=== PATIENT | male | born 1965 | race Caucasian/White ===

== ENCOUNTER 2018-03-09 07:14 | Emergency (ER) | payer BC ==
[2018-03-09 07:40] VITALS: BP 154/95
--- NOTE | 2018-03-09 07:57 | UC ---
Respiratory Complaint HPI - HPI Summary HPI Summary: 52 yo male with 5 day history of cough non productive no CP chest feels tight F/C no N/V/D some nasal congestion - History of Current Complaint Chief Complaint: UCRespiratory Stated Complaint: FEVER, AND COUGH Time Seen by Provider: 03/09/18 07:53 Hx Obtained From: Patient Onset/Duration: Gradual Onset, Lasting Days Timing: Constant Severity Initially: Moderate Severity Currently: Severe Pain Intensity: 8 Pain Scale Used: 0-10 Numeric Character: Cough: Nonproductive Aggravating Factors: Exertion, Recumbent Position Alleviating Factors: Nothing Associated Signs And Symptoms: Positive: Fever, Chills, Nasal Congestion - Allergies/Home Medications Allergies/Adverse Reactions: Allergies Allergy/AdvReac Type Severity Reaction Status Date / Time No Known Allergies Allergy Verified 03/09/18 07:24 Home Medications: Home Medications Amlodipine Besylate [Norvasc 10 mg tab] 1 tab PO DAILY 03/09/18 [History Confirmed 03/09/18] D-Methorphan/PE/Acetaminophen [Theraflu Expressmax Cold-Cough] 30 ml PO QID [History Confirmed 03/09/18] Hydrochlorothiazide TAB* [Hydrodiuril TAB*] 1 tab PO DAILY 03/09/18 [History Confirmed 03/09/18] Losartan/Hydrochlorothiazide [Losartan-Hctz 100-12.5 mg Tab] 1 tab PO DAILY [History Confirmed 03/09/18] PMH/Surg Hx/FS Hx/Imm Hx Previously Healthy: Yes Cardiovascular History: Hypertension Respiratory History: Pneumonia - x1 - Surgical History Surgical History: Yes Surgery Procedure, Year, and Place: RIGHT ANKLE, UQR ABDOMINAL SURG A BABY. - Family History Known Family History: Positive: Hypertension - Social History Alcohol Use: Occasionally Substance Use Type: None Smoking Status (MU): Never Smoked Tobacco Review of Systems Constitutional: Fever, Chills, Fatigue Skin: Negative Eyes: Negative ENT: Negative Respiratory: Cough Cardiovascular: Negative Gastrointestinal: Negative Genitourinary: Negative Motor: Negative Neurovascular: Negative Musculoskeletal: Negative Neurological: Negative Psychological: Negative Is Patient Immunocompromised?: No All Other Systems Reviewed And Are Negative: Yes Physical Exam Triage Information Reviewed: Yes Appearance: Well-Appearing, No Pain Distress, Well-Nourished Vital Signs: Initial Vital Signs Temp 98.4 F 03/09/18 07:28 Pulse 78 03/09/18 07:28 Resp 16 03/09/18 07:28 BP 154/95 03/09/18 07:28 Pulse Ox 94 03/09/18 07:28 Vital Signs Reviewed: Yes Eyes: Positive: Conjunctiva Clear ENT: Positive: Hearing grossly normal. Negative: Nasal congestion, Nasal drainage, Trismus, Muffled voice, Hoarse voice Neck: Positive: Supple, Nontender, No Lymphadenopathy Respiratory: Positive: Normal breath sounds, No respiratory distress, No accessory muscle use, Wheezing - WITH FORCED EXPIRATION Cardiovascular: Positive: RRR, No Murmur. Negative: Tachycardia Musculoskeletal: Positive: ROM Intact, No Edema Neurological Exam: Normal Psychological Exam: Normal Skin Exam: Normal UC Diagnostic Evaluation - Laboratory O2 Sat by Pulse Oximetry: 94 - low normal - Radiology Xray Interpretation: No Acute Changes Radiology Interpretation Completed By: Radiologist Re-Evaluation - Re-Evaluation First Eval Re-Evaluation Time: 08:56 Change: Improved - lungs clear/better air movement/subjectively improved Respiratory Course/Dx - Differential Dx/Diagnosis Provider Diagnoses: acute bronchitis with bronchospasm Discharge - Sign-Out/Discharge Documenting (check all that apply): Discharge/Admit/Transfer - Discharge Plan Condition: Stable Disposition: HOME Prescriptions: Amoxicillin PO (*) [Amoxicillin 875 MG (*)] 875 mg PO BID #14 tab predniSONE [Deltasone] 40 mg PO DAILY #10 tab Patient Education Materials: Acute Bronchitis (ED), How to Use a Metered-Dose Inhaler (ED) Referrals: Maykel Chavez MD [Primary Care Provider] - 4 Days (if not better) - Billing Disposition and Condition Condition: STABLE Disposition: HOME
--- NOTE | 2018-03-09 08:22 | RAD ---
HISTORY: Fever, cough COMPARISONS: November 03, 2009 VIEWS: 4: Frontal dual-energy and lateral views of the chest. FINDINGS: CARDIOMEDIASTINAL SILHOUETTE: The cardiomediastinal silhouette is normal. SEVERO: The severo are normal. PLEURA: The costophrenic angles are sharp. No pleural abnormalities are noted. LUNG PARENCHYMA: The lungs are clear. ABDOMEN: The upper abdomen is clear. There is no subphrenic gas. BONES AND SOFT TISSUES: No bone or soft tissue abnormalities are noted. OTHER: None. IMPRESSION: NO ACTIVE CARDIOPULMONARY DISEASE.
[2018-03-09] MEDS ORDERED: Albuterol 2.5 MG/3 ML NEB.SOL* (0.083%) INH ONE (08:24)
[2018-03-09] MEDS ORDERED: Ipratropium 0.5MG/2.5ML NEB* 0.5 MG/2.5 ML NEB.SOLN INH ONE (08:24)
[2018-03-09] MEDS ORDERED: predniSONE TAB* 20 MG PO ONE (08:54)
[2018-03-09] MEDS ORDERED: Albuterol HFA INHALER* 8 gm MDI INH ONE (08:54)
== END 2018-03-09 09:10 | disposition home or self-care (01) ==
LOC: UCEAST 07:14
DX: J20.9 Acute bronchitis, unspecified (principal); I10 Essential (primary) hypertension
CPT/HCPCS: 71046; 99203; A9270-GY; G0463; J7512